=== PATIENT | male | born 1965 | race Caucasian/White ===

== ENCOUNTER 2022-03-21 17:36 | Emergency (ER) | payer OTHER ==
[~2022-03-21] VITALS: Ht 188 cm; Wt 113.0 kg
[2022-03-21 17:43] VITALS: BP 134/86
[2022-03-21] MEDS ORDERED: LIDOCAINE HCL/EPINEPHRINE 1%-EPI 1:100,000 50 ML VIAL INFIL ONE (20:00)
== END 2022-03-21 22:42 | disposition home or self-care (01) ==
LOC: ER 17:36
DX: S01.511A Laceration without foreign body of lip, initial encounter (principal); X58.XXXA Exposure to other specified factors, initial encounter; Y93.89 Activity, other specified; Y92.89 Other specified places as the place of occurrence of the external cause; Y99.8 Other external cause status
CPT/HCPCS: 12013; 99283; Z7610